=== PATIENT | male | born 1970 | race American Indian/Alaskan Native ===

== ENCOUNTER 2018-10-30 20:35 | Emergency (ER) | payer SELFPAY ==
[2018-10-30] MEDS ORDERED: PERCOCET 5/325 PO ONE (22:45)
[2018-10-30] MEDS ORDERED: PERCOCET 5/325 ONE (22:45)
--- NOTE | 2018-10-31 02:20 | XRay Report ---
PROCEDURE: XR KNEE 3V LT TECHNIQUE: 3 views of the left knee. HISTORY: Left knee pain. COMPARISONS:None available. FINDINGS: No acute fracture or large joint effusion. Tricompartment degenerative changes noting mild medial compartment joint space narrowing with margina l osteophytes and small marginal osteophytes about the patellofemoral and lateral compartment. No ossified ventricular body. Osseous mineralization normal. IMPRESSION: No acute osseous abnormality. Tricompartment degenerative changes, moderate involving the medial compartment.. This document is electronically signed by Sky Cueva DO., October 31 2018 02:18:00 AM ET
== END 2018-10-31 00:47 | disposition home or self-care (01) ==
LOC: ED 20:35
DX: M79.604 Pain in right leg (principal); Z53.21 Procedure and treatment not carried out due to patient leaving prior to being seen by health care provider

== ENCOUNTER 2020-12-13 22:41 | Emergency (ER) | payer SELFPAY ==
[2020-12-14 01:04] VITALS: BP 133/82
[2020-12-14] MEDS ORDERED: IBUPROFEN 600 MG TAB PO ONE (03:00)
[2020-12-14] MEDS ORDERED: diphenhydrAMINE 25 MG CAP PO ONE (03:00)
[2020-12-14] MEDS ORDERED: FAMOTIDINE 20 MG TAB PO ONE (03:00)
[2020-12-14] MEDS ORDERED: predniSONE 20 MG TAB PO ONE (03:00)
--- NOTE | 2020-12-14 04:26 | Emergency Department Report ---
ED Allergic Reaction HPI - General Chief complaint: Animal Bite Stated complaint: BEE STING Source: patient Mode of arrival: Ambulatory Limitations: No Limitations - History of Present Illness Initial Comments: Patient is a 50-year-old -[place] male with history of hypertension who presents to the ED with complaint of acute onset persistent diffuse itchy erythematous maculopapular urticarial rashes after being bitten by bees while mowing his lawn about 6 hours ago. Patient states that the itching and the rashes have worsened especially in the last 4 hours. Patient also complains of bilateral lower extremity pain because of insect bites. Patient also complains of painful posterior left lower leg ulcerated wound which he said he sustained after he accidentally bumped his posterior left lower leg against his truck about 1 week ago. Patient denies dizziness, syncope, swollen lips or tongue, dysphagia, dysphonia, nasal and sinus congestion, chest pain, shortness of breath, cough, nausea, vomiting, abdominal pain, diarrhea, change in vision, fever and chills. MD Complaint: allergic reaction, hives, other (Bilateral lower extremity pain) -: Sudden, hour(s) (6 hours) Exposure: insect bite Symptoms: rash, itching. denies: facial swelling, lip swelling, difficulty swallowing, difficulty breathing, orolingual swelling, hoarseness, syncopy, dizziness, nausea, vomiting, other, abdominal pain Severity: moderate Treatment Prior to Arrival: none Previous Allergy History: none - Related Data Previous Rx's Medication Instructions Recorded Last Taken Type Famotidine [Pepcid] 20 mg PO BID #60 tablet 12/14/20 Unknown Rx Ibuprofen [Motrin] 800 mg PO Q8HR PRN #30 tablet 12/14/20 Unknown Rx Mupirocin [Bactroban 2% OINT] 1 applic TP TID #1 tube 12/14/20 Unknown Rx Prednisone [predniSONE 10 mg 10 mg PO .TAPER #21 tab.ds.pk 12/14/20 Unknown Rx (6-Day Pack, 21 Tabs)] Sulfamethoxazole/Trimethoprim 1 each PO Q12H #20 tablet 12/14/20 Unknown Rx [Bactrim DS TAB] diphenhydrAMINE [Benadryl CAP] 50 mg PO Q8HR PRN #30 capsule 12/14/20 Unknown Rx Allergies Allergy/AdvReac Type Severity Reaction Status Date / Time Penicillins Allergy Anaphylaxis Verified 12/14/20 01:04 ED Review of Systems ROS: Stated complaint: BEE STING Other details as noted in HPI Constitutional: denies: chills, fever Eyes: denies: eye pain, eye discharge, vision change ENT: denies: ear pain, throat pain Respiratory: denies: cough, shortness of breath, wheezing Cardiovascular: denies: chest pain, palpitations Endocrine: no symptoms reported Gastrointestinal: denies: abdominal pain, nausea, diarrhea Genitourinary: denies: urgency, dysuria Musculoskeletal: arthralgia (Left lower leg pain due to an ulcerated wound). denies: back pain, joint swelling Skin: rash (Diffuse erythematous maculopapular itchy urticarial rashes), change in color, pruritus. denies: lesions Neurological: denies: headache, weakness, paresthesias Psychiatric: denies: anxiety, depression Hematological/Lymphatic: denies: easy bleeding, easy bruising ED Past Medical Hx - Past Medical History Hx Hypertension: Yes - Surgical History Past Surgical History?: No - Social History Smoking Status: Never Smoker Substance Use Type: None - Medications Home Medications: Home Medications Medication Instructions Recorded Confirmed Last Taken Type Famotidine [Pepcid] 20 mg PO BID #60 tablet 12/14/20 Unknown Rx Ibuprofen [Motrin] 800 mg PO Q8HR PRN #30 tablet 12/14/20 Unknown Rx Mupirocin [Bactroban 2% OINT] 1 applic TP TID #1 tube 12/14/20 Unknown Rx Prednisone [predniSONE 10 mg 10 mg PO .TAPER #21 tab.ds.pk 12/14/20 Unknown Rx (6-Day Pack, 21 Tabs)] Sulfamethoxazole/Trimethoprim 1 each PO Q12H #20 tablet 12/14/20 Unknown Rx [Bactrim DS TAB] diphenhydrAMINE [Benadryl CAP] 50 mg PO Q8HR PRN #30 capsule 12/14/20 Unknown Rx ED Physical Exam - General Limitations: No Limitations General appearance: alert, in no apparent distress - Head Head exam: Present: atraumatic, normocephalic, normal inspection - Eye Eye exam: Present: normal appearance, PERRL, EOMI Pupils: Present: normal accommodation - ENT ENT exam: Present: normal exam, normal orophraynx, mucous membranes moist, TM's normal bilaterally, normal external ear exam - Neck Neck exam: Present: normal inspection, full ROM - Respiratory Respiratory exam: Present: normal lung sounds bilaterally. Absent: respiratory distress, wheezes, rales, rhonchi, stridor, chest wall tenderness, accessory muscle use, decreased breath sounds, prolonged expiratory - Cardiovascular Cardiovascular Exam: Present: regular rate, normal rhythm, normal heart sounds. Absent: systolic murmur, diastolic murmur, rubs, gallop - GI/Abdominal GI/Abdominal exam: Present: soft, normal bowel sounds. Absent: tenderness, guarding, hyperactive bowel sounds, hypoactive bowel sounds - Extremities Exam Extremities exam: Present: normal inspection, full ROM, tenderness (Palpable localized left lower leg tenderness due to an ulcerated open wound), normal capillary refill - Back Exam Back exam: Present: normal inspection, full ROM. Absent: tenderness, CVA tenderness (R), CVA tenderness (L), muscle spasm, paraspinal tenderness, vertebral tenderness - Neurological Exam Neurological exam: Present: alert, oriented X3, CN II-XII intact, normal gait, reflexes normal - Psychiatric Psychiatric exam: Present: normal affect, normal mood - Skin Skin exam: Present: warm, dry, intact, normal color, rash (Diffuse erythematous maculopapular urticarial rashes), erythema, urticaria ED Course Vital Signs 12/14/20 00:53 Temperature 97.4 F L Pulse Rate 77 Respiratory 18 Rate Blood Pressure 133/82 O2 Sat by Pulse 96 Oximetry ED Medical Decision Making - Medical Decision Making This is a 50-year-old -[place] male with history of hypertension who presents to the ED with complaint of acute onset persistent diffuse itchy erythematous maculopapular urticarial rashes after being bitten by bees while mowing his lawn about 6 hours ago. Patient states that the itching and the rashes have worsened especially in the last 4 hours. Patient also complains of bilateral lower extremity pain because of insect bites. Patient also complains of painful posterior left lower leg ulcerated wound which he said he sustained after he accidentally bumped his posterior left lower leg against his truck about 1 week ago. In the ED, patient is alert and oriented x3 and is not in any distress. Patient was treated for acute allergic reaction with oral prednisone, Benadryl and Pepcid as well as Motrin for pain. On reevaluation, patient's pain is well controlled medication. Patient will discharge home on pain medications and oral steroids as well as Benadryl and Pepcid. Patient was advised to follow-up with his primary care physician in 5 to 7 days for reevaluation or return to the ED immediately if symptoms get worse. - Differential Diagnosis Allergic reaction; insect bite allergy; hives; acute urticaria; cellulitis Critical care attestation.: If time is entered above; I have spent that time in minutes in the direct care of this critically ill patient, excluding procedure time. ED Disposition Clinical Impression: Allergy to insect bites and stings, Acute urticaria Acute allergic reaction Qualifiers: Encounter type: initial encounter Qualified Code(s): T78.40XA - Allergy, unspecified, initial encounter Wound of left lower extremity Qualifiers: Encounter type: initial encounter Qualified Code(s): S81.802A - Unspecified open wound, left lower leg, initial encounter Disposition: TO HOME OR SELFCARE Is pt being admited?: No Does the pt Need Aspirin: No Condition: Stable Instructions: Allergies, Adult, [id number], Rash, Adult, [id number], Hives, [id number], Wound Care, Adult Additional Instructions: Take medication with food, drink plenty of fluids and follow-up with your primary care physician in 7 to 10 days for reevaluation. Return to the ED immediately if symptoms get worse. Prescriptions: Sulfamethoxazole/Trimethoprim [Bactrim DS TAB] 1 each PO Q12H #20 tablet Mupirocin [Bactroban 2% OINT] 1 applic TP TID #1 tube diphenhydrAMINE [Benadryl CAP] 50 mg PO Q8HR PRN #30 capsule PRN Reason: Itching Ibuprofen [Motrin] 800 mg PO Q8HR PRN #30 tablet PRN Reason: Pain , Severe (7-10) Famotidine [Pepcid] 20 mg PO BID #60 tablet Prednisone [predniSONE 10 mg (6-Day Pack, 21 Tabs)] 10 mg PO .TAPER #21 tab.ds.p k Referrals: [facility] [Provider Group] - 3-5 Days Time of Disposition: 04:29 Print Language: SPANISH
== END 2020-12-14 04:54 | disposition home or self-care (01) ==
LOC: ED 22:41
DX: S81.802A Unspecified open wound, left lower leg, initial encounter (principal); T78.40XA Allergy, unspecified, initial encounter; L50.0 Allergic urticaria; I10 Essential (primary) hypertension; Z88.0 Allergy status to penicillin; W57.XXXA Bitten or stung by nonvenomous insect and other nonvenomous arthropods, initial encounter; Y93.89 Activity, other specified; Y92.89 Other specified places as the place of occurrence of the external cause; Y99.8 Other external cause status
CPT/HCPCS: 99282; J7512